=== PATIENT | male | born 1985 | race Caucasian/White ===

== ENCOUNTER 2022-01-03 08:40 | Day surgery (SDC) | payer MEDICAID ==
[~2022-01-03] VITALS: Ht 172.7 cm; Wt 159.6 kg
[2022-01-03 08:48] VITALS: BP 155/86
[2022-01-03] MEDS ORDERED: fentaNYL/PF 50MCG/1 ML 2ML syringe ONE (09:30)
[2022-01-03] MEDS ORDERED: LIDOcaine Viscous 15ml cup ONE (09:30)
[2022-01-03] MEDS ORDERED: MIDAZolam 1 MG/ML 5ML VIAL ONE (09:30)
[2022-01-03] MEDS ORDERED: NAPR-996 PO (09:38)
[2022-01-03] MEDS ORDERED: BACL-11 PO (09:38)
[2022-01-03 10:43] VITALS: BP 123/74
[2022-01-03 10:53] VITALS: BP 137/72
[2022-01-03 11:03] VITALS: BP 146/80
== END 2022-01-03 11:15 | disposition home or self-care (01) ==
LOC: GI LAB 08:40
PROVIDERS: ATTEND Internal Medicine Gastroenterology
DX: Z01.818 Encounter for other preprocedural examination (principal); K21.00 Gastro-esophageal reflux disease with esophagitis, without bleeding; K29.50 Unspecified chronic gastritis without bleeding; E66.01 Morbid (severe) obesity due to excess calories; Z68.43 Body mass index [BMI] 50.0-59.9, adult; Z87.891 Personal history of nicotine dependence; Z72.89 Other problems related to lifestyle
CPT/HCPCS: 43239; 99152; J2250; J3010; J7030; Z7512; A4620